=== PATIENT | female | born 1940 | race Two or more races ===

== ENCOUNTER 2025-03-12 16:59 | Emergency (ER) | payer OTHER ==
[~2025-03-12] VITALS: Ht 157.5 cm; Wt 46.8 kg
[2025-03-12 17:04] VITALS: TEMP 98.3
[2025-03-12] MEDS ORDERED: LIDOCAINE 1% HCL (LOCAL ANESTH.) INJ 20ML MDV ID ONE (18:15)
--- NOTE | 2025-03-12 18:53 | ED.PDOC ---
History of Present Illness HPI Comments 84 y/o F, with a history of dementia, is [id number] log cutter for c/c facial bruising and upper lip laceration s/p fall and head injury. Per log cutter, patient fell, this morning, after getting out of bed and losing her balance. No lost of consciousness. Patient was found by log cutter face down on the floor but reports on patient acting appropriate after being assisted up. Bleeding controlled prior to arrival. No further injuries or acute symptoms reported at this time. Chief Complaint: Facial Injury Time Seen by MD: 18:15 Reviewed Notes: Nurses Notes, Medications, Allergies Allergies: Coded Allergies: NO KNOWN ALLERGIES (Unverified , 03/12/25) Information Source: Patient Mode of Arrival: Ambulatory Past Medical History PAST MEDICAL HISTORY: Dementia Surgical History: Denies all surgeries LEAD JAVA PROGRAMMER History: Denies all LEAD JAVA PROGRAMMER Hx Family History Family History: Unknown Social History Smoker: Non-Smoker Alcohol: Denies ETOH Use Drugs: Denies Drug Use All Other Systems: Reviewed and Negative (As per HPI) Physical Exam General Appearance: No Apparent Distress, Thin HEENT: Normal ENT Inspection, Pharynx Normal, TMs Normal Neck: Full Range of Motion, Non-Tender, Normal, Normal Inspection Respiratory: Chest Non-Tender, Lungs Clear, No Accessory Muscle Use, No R espiratory Distress, Normal Breath Sounds Cardiovascular: No Edema, No JVD, No Murmur, No Gallop, Normal Peripheral Pulses, Regular Rate/Rhythm Breast Exam: Deferred Gastrointestinal: No Organomegaly, Non Tender, No Pulsatile Mass, Normal Bowel Sounds, Soft Genitalia: Deferred Pelvic: Deferred Rectal: Deferred Extremities: No calf tenderness, Normal capillary refill, Normal inspection, Normal range of motion, Non-tender, No pedal edema Musculoskeletal : Apperance: Normal Neurologic: Alert (poor memory at baseline), human services professional II-XII nml as Tested, No Motor Deficits, Normal Affect, Normal Mood, No Sensory Deficits Cerebellar Function: Normal Reflexes: Normal Skin: Bruises (generalized facial contusions ), Dry, Lacerations (2.5 cm laceration to upper lip), Normal Color, Warm Lymphatic: No Adenopathy Was a procedure done? Was a procedure done?: Yes Sedation Sedation?: No Laceration Repair : Location upper lip Length 2.5cm Anesthetic: Lidocaine, Without epi Laceration Repair Prep: Saline, Wiley, by Irrigation, Manual Scrub Laceration Repair Wound Comple: epidermis/dermis repair Laceration Repair: Number of sutures (4x 5.0 nylon, simple, interrupted ), Simple Informed consent obtained: Yes Risks, benefits, and alternati: Yes Differential Dx Considerations may include: laceration, avulsion, abrasion, contusion, fractures, intracranial bleed, among others X-Ray, Labs, Meds, VS Vital Signs Date Time Temp Pulse Resp B/P (MAP) Pulse Ox O2 Delivery O2 Flow Rate FiO2 03/12/25 20:47 70 16 131/71 (91) 96 03/12/25 20:47 70 16 96 Room Air 03/12/25 17:04 98.3 84 16 136/79 98 98.3 [place] [id number] Ph: [phone] DIAGNOSTIC IMAGING Diagnostic Imaging Report : [id number] Signed PATIENT: MILLY BOYLE ACCT: [id number] UNIT: [id number] : 1940 LOC: ER ROOM / BED: / AGE / SEX: 84 / F ADM STATUS: REG ER SERVICE 07 ORDERING PHYSICIAN: MICHELLE MARTINEZ MD PROCEDURE(s): FAC2C - MAXILLOFACIAL WITHOUT REASON: fall injury pain ORDER NUMBER(s): [id number], ACCESSION NUMBER(s): [id number] HISTORY: fall injury pain TECHNIQUE: Nonenhanced axial images through the facial bones with coronal and sagittal MPR. Radiation Dose Information: CT Dose: CTDI volume is 63.59 mGy. Dose-length product is 1.78 mGy*cm FINDINGS: Mandible: No acute fracture Maxilla: No acute fracture Pterygoid plates: No acute fracture Zygomatic processes: Intact bilaterally. Zygomatic arches: Intact bilaterally no acute fracture Orbits: Normal bilaterally Sinuses: No opacification or mucosal thickening Facial swelling: No radiographically significant soft tissue swelling IMPRESSION: 1. No acute fracture or dislocation. Radiation optimization: All CT scans at this facility use at least one of these dose optimization techniques: automated exposure control mA and/or kV adjustment per patient size (includes targeted exams where dose is matched to clinical indication) or iterative reconstruction. ATED BY: FAITH MANNING Jr., DO DICTATED DATE/TIME: 03/12/251927 SIGNED BY: FAITH MANNING Jr., SIGNED DATE/TIME: 03/12/251927 CC: [place] [id number] Ph: [phone] DIAGNOSTIC IMAGING Diagnostic Imaging Report : [id number] Signed PATIENT: MILLY BOYLE ACCT: [id number] UNIT: [id number] : 1940 LOC: ER ROOM / BED: / AGE / SEX: 84 / F ADM STATUS: REG ER SERVICE 07 ORDERING PHYSICIAN: MICHELLE MARTINEZ MD PROCEDURE(s): HWOCT - HEAD WITHOUT CONTRAST REASON: injury pain ORDER NUMBER(s): [id number], ACCESSION NUMBER(s): [id number] EXAM: CT HEAD WITHOUT CONTRAST INDICATION: injury pain TECHNIQUE: CT of the head without intravenous contrast. Radiation Dose Information: CT Dose: CTDI volume is 46.75 mGy. Dose-length product is 834.37 mGy*cm The dose indicators for CT are the volume Computed Tomography (CT) Dose Index (CTDIvol) and the Dose Length Product (DLP), and are measured in units of mGy and mGy-cm, respectively. These indicators are not patient dose, but values generated from the CT scanner acquisition factors. The report includes radiation exposure data for exposures received during this examination. COMPARISON: CT MAXILLOFACIAL WITHOUT on DOS: 03/12/25 FINDINGS: There is no evidence of acute intracranial hemorrhage, extra-axial collection, mass effect, midline shift, herniation or hydrocephalus. The ventricles, sulci and cisterns are age appropriate. The rajan-white differentiation is intact. Patchy periventricular and subcortical white matter hypoattenuation is nonspecific but may be related to small vessel ischemic disease. The visualized paranasal sinuses and mastoid air cells are clear. The surrounding soft tissues and osseous structures are unremarkable. IMPRESSION: 1. No acute intracranial hemorrhage 2. No CT findings of territorial ischemia. 3. No CT findings of displaced skull fracture. ATED BY: FAITH MANNING Jr., DO DICTATED DATE/TIME: 03/12/251916 SIGNED BY: FAITH MANNING Jr., SIGNED DATE/TIME: 03/12/251916 CC: Time of 1ST Reevaluation: 18:45 Reevaluation 1ST: Unchanged Patient Education/Counseling: Other (patient has dementia) Family Education/Counseling: Diagnosis, Treatment, Need For Follow Up SEPSIS Sepsis Screen Date sepsis recognized/suspect: Mar 12, 2025 Time Sepsis recognized/suspect: 1710 Recent Procedure: No On Antibiotic Therapy: No Respiratory Rate >20: No Heart Rate >90: No Temp<36 C (96.8 F) or >38.3 C: No SBP <90 or MAP <65 mmHG: No New Acute Mental Status Change: No Is the patient on CPAP, BIPAP,: No Physician Orders Head Without Contrast (03/12/25 18:08) Maxillofacial Without (03/12/25 18:08) Laceration Setup (03/12/25 ) Vital Signs Date Time Temp Pulse Resp B/P (MAP) Pulse Ox O2 Delivery O2 Flow Rate FiO2 03/12/25 20:47 70 16 131/71 (91) 96 03/12/25 20:47 70 16 96 Room Air 03/12/25 17:04 98.3 84 16 136/79 98 98.3 Departure 1 Departure Time of Disposition: 20:30 Impression: Primary Impression: Facial contusion Additional Impressions: Head injury Lip laceration Disposition: 01 HOME / SELF CARE / HOMELESS Condition: Stable Discharged With: Self, Relative Critical Care Note Critical Care Time?: No Stability Stability form required: No Heart Score Heart Score: Heart Score Response (Comments) Value History N/A 0 EKG N/A 0 Age N/A 0 Risk Factors N/A 0 Troponin N/A 0 Total 0 I personally scribed for MICHELLE MARTINEZ MD ([email or web address]) on 03/12/25 at 18:53. Electronically submitted by Newton Khoury ([email or web address]). I personally scribed for MICHELLE MARTINEZ MD ([email or web address]) on 03/12/25 at 19:52. Electronically submitted by Newton Khoury ([email or web address]). I personally scribed for MICHELLE MARTINEZ MD ([email or web address]) on 03/12/25 at 19:57. Electronically submitted by Newton Khoury ([email or web address]). MICHELLE MARTINEZ MD Mar 12, 2025 18:53
--- NOTE | 2025-03-12 19:19 | DVH ---
EXAM: CT HEAD WITHOUT CONTRAST INDICATION: injury pain TECHNIQUE: CT of the head without intravenous contrast. Radiation Dose Information: CT Dose: CTDI volume is 46.75 mGy. Dose-length product is 834.37 mGy*cm The dose indicators for CT are the volume Computed Tomography (CT) Dose Index (CTDIvol) and the Dose Length Product (DLP), and are measured in units of mGy and mGy-cm, respectively. These indicators are not patient dose, but values generated from the CT scanner acquisition factors. The report includes radiation exposure data for exposures received during this examination. COMPARISON: CT MAXILLOFACIAL WITHOUT on DOS: 03/12/25 FINDINGS: There is no evidence of acute intracranial hemorrhage, extra-axial collection, mass effect, midline s hift, herniation or hydrocephalus. The ventricles, sulci and cisterns are age appropriate. The rajan-white differentiation is intact. Patchy periventricular and subcortical white matter hypoattenuation is nonspecific but may be related to small vessel ischemic disease. The visualized paranasal sinuses and mastoid air cells are clear. The surrounding soft tissues and osseous structures are unremarkable. IMPRESSION: 1. No acute intracranial hemorrhage 2. No CT findings of territorial ischemia. 3. No CT findings of displaced skull fracture.
--- NOTE | 2025-03-12 19:30 | DVH ---
HISTORY: fall injury pain TECHNIQUE: Nonenhanced axial images through the facial bones with coronal and sagittal MPR. Radiation Dose Information: CT Dose: CTDI volume is 63.59 mGy. Dose-length product is 1.78 mGy*cm FINDINGS: Mandible: No acute fracture Maxilla: No acute fracture Pterygoid plates: No acute fracture Zygomatic processes: Intact bilaterally. Zygomatic arches: Intact bilaterally no acute fracture Orbits: Normal bilaterally Sinuses: No opacification or mucosal thickening Facial swelling: No radiographically significant soft tissue swelling IMPRESSION: 1. No acute fracture or dislocation. Radiation optimization: All CT scans at this facility use at least one of these dose optimization ivanna hniques: automated exposure control mA and/or kV adjustment per patient size (includes targeted exam s where dose is matched to clinical indication) or iterative reconstruction.
[2025-03-12 20:47] VITALS: BP 131/71; PULSE 70; RESP 16; O2SAT 96
== END 2025-03-12 20:50 | disposition home or self-care (01) ==
LOC: ER 16:59
DX: S01.511A Laceration without foreign body of lip, initial encounter (principal); S09.8XXA Other specified injuries of head, initial encounter; F03.90 Unspecified dementia, unspecified severity, without behavioral disturbance, psychotic disturbance, mood disturbance, and anxiety; W19.XXXA Unspecified fall, initial encounter; Y93.89 Activity, other specified; Y92.89 Other specified places as the place of occurrence of the external cause; Y99.8 Other external cause status
CPT/HCPCS: 12011; 70450; 70486